=== PATIENT | male | born 1975 | race Caucasian/White ===

== ENCOUNTER 2018-09-26 16:29 | Emergency (ER) | payer SELFPAY ==
[~2018-09-26] VITALS: Ht 167.6 cm; Wt 63.5 kg
[~2018-09-26 16:29] MED LIST: CELEXA40 MG PO; DOXYCYCLINE100 M2 PO; NKHM; PREDNICOT20 MG PO; PREDNISONE20 MG PO; TRAZADONE HYDR100 MG PO; VIBRAMYCIN100 MG PO; VISTARIL25 M1 PO; ZITHROMAX Z PA250 MG PO
[2018-09-26] MEDS ORDERED: DOXYCYCLINE100 M3 PO (16:51)
[2018-09-26] MEDS ORDERED: IBU800 MG PO (16:51)
[2018-09-26] MEDS ORDERED: ANTIBIOTIC28.4 GM T (16:51)
[2018-09-26] MEDS ORDERED: AUGMENTIN 875-875 MG PO (17:56)
== END 2018-09-26 18:17 | disposition home or self-care (01) ==
LOC: ED 16:29
DX: S62.636A Displaced fracture of distal phalanx of right little finger, initial encounter for closed fracture (principal); S61.216A Laceration without foreign body of right little finger without damage to nail, initial encounter; Z88.1 Allergy status to other antibiotic agents; W31.89XA Contact with other specified machinery, initial encounter; Y93.89 Activity, other specified; Y92.89 Other specified places as the place of occurrence of the external cause; Y99.8 Other external cause status